=== PATIENT | male | born 1955 | race Caucasian/White ===

== ENCOUNTER 2018-12-26 22:50 | Emergency (ER) | payer OTHER, BC ==
[2018-12-26 23:06] VITALS: BP 167/94; PULSE 74; TEMP 97.5; BMI 34.4
--- NOTE | 2018-12-26 23:25 | PDOC ---
History of Present Illness - General Chief Complaint: Pain, Acute Stated Complaint: WOUND ON LEFT LEG X 6 WEEKS Time Seen by Provider: 12/26/18 22:54 - History of Present Illness Initial Comments: 12/26/18 23:19 63 M with h/o HTN, PVD, presents to ED with LLE wound x 6 weeks. Pt states that he first noticed a small pimple or sore 6 weeks ago that progressively worsened. He went to urgent care and was treated with an antibiotic, which he cannot recall. It helped reduce the redness, but the wound did not heal. Pt states that he went to his PMD, who referred him to a vascular surgeon. The vascular surgeon has been treating the wound with dressings. Pt states that the dressing that he applied 2 days ago began to irritate him today. He reports significant pain to the wound, prompting him to come to the ED. After removing the dressing, pt states the pain has subsided significantly. Pt denies F/C. Denies any purulent drainage or foul smelling drainage from the wound. Past History - Past Medical History Allergies/Adverse Reactions: Allergies Allergy/AdvReac Type Severity Reaction Status Date / Time Isothiazolinones Allergy Verified 12/26/18 22:55 Home Medications: Ambulatory Orders Valsartan/Hydrochlorothiazide [Valsartan-Hctz 160-12.5 mg Tab] 1 each PO DAILY 12/26/18 COPD: No HTN: Yes - Suicide/Smoking/Psychosocial Hx Smoking Status: Yes Smoking History: Former smoker Have you smoked in the past 12 months: No Number of Cigarettes Smoked Daily: 15 Information on smoking cessation initiated: No Hx Alcohol Use: Yes (BEER DAILY) Drug/Substance Use Hx: No Review of Systems - Review of Systems Comments:: 12/26/18 23:23 "GENERAL/CONSTITUTIONAL: No fever or chills. No weakness. HEAD, EYES, EARS, NOSE AND THROAT: No change in vision. No ear pain or discharge. No sore throat. CARDIOVASCULAR: No chest pain, no shortness of breath, no loss of consciousness RESPIRATORY: No cough, wheezing, or hemoptysis. GASTROINTESTINAL: No nausea, vomiting, diarrhea or constipation. GENITOURINARY: No dysuria, frequency, or change in urination. MUSCULOSKELETAL: No joint or muscle swelling or pain. No neck or back pain. SKIN: + LLE wound NEUROLOGIC: No vertigo, no change in strength/sensation. ENDOCRINE: No increased thirst. No abnormal weight change. HEMATOLOGIC/LYMPHATIC: No anemia, easy bleeding, or history of blood clots. ALLERGIC/IMMUNOLOGIC: No hives or skin allergy. *Physical Exam - Vital Signs Last Vital Signs Temp Pulse Resp BP Pulse Ox 97.5 F L 74 16 167/94 95 12/26/18 23:01 12/26/18 23:01 12/26/18 23:01 12/26/18 23:01 12/26/18 23:01 - Physical Exam Comments: 12/26/18 23:23 "GENERAL: Awake, alert, and fully oriented, in no acute distress. HEAD: No signs of trauma EYES: PERRLA, EOMI, sclera anicteric, conjunctiva clear ENT: Auricles normal inspection, hearing grossly normal, nares patent, oropharynx clear without exudates. Moist mucosa NECK: Nontender, no stepoffs, Normal ROM, supple, no lymphadenopathy, JVD, or masses LUNGS: Breath sounds equal, clear to auscultation bilaterally. No wheezes, and no crackles HEART: Regular rate and rhythm, normal S1 and S2, no murmurs, rubs or gallops ABDOMEN: Soft, nontender, normoactive bowel sounds. No guarding, no rebound. No masses EXTREMITIES: Normal range of motion, no edema. No clubbing or cyanosis. No cords, erythema, or tenderness NEUROLOGICAL: Cranial nerves II through XII intact. 5/5 strength and sensation in all extremities, Normal speech, normal gait, normal cerebellar function SKIN: + 4cm ulcer to posterior LLE, no purulent drainage, mild surrounding erythema without induration/fluctuance Medical Decision Making - Medical Decision Making 12/26/18 23:24 63 M with chronic LLE wound, presenting to ED for increased pain to site, now alleviated after removal of wound dressing. Mild erythema around wound but no other signs of infection. - Start bactrim - F/u vascular surgery Pt is well appearing, with normal vitals. Clinically stable for DC at this time. I discussed the physical exam findings, ancillary test results and final diagnoses with the patient. I answered all of the patient's questions. The patient was satisfied with the care received and felt comfortable with the discharge plan and treatment plan. The patient agrees to follow up with the primary care physician within 24-72 hours. *DC/Admit/Observation/Transfer Diagnosis at time of Disposition: Chronic wound of extremity - Discharge Dispostion Disposition: HOME Condition at time of disposition: Stable - Referrals - Patient Instructions Printed Discharge Instructions: Venous Stasis Ulcer Additional Instructions: Take the antibiotics as prescribed. Follow up with your vascular surgeon this as scheduled. If you experience worsening pain, swelling, redness, fevers, or any other concerning symptoms, return to the ER immediately. - Post Discharge Activity - Attestations Physician Attestion: 12/26/18 23:27 I, Dr. Derek Rasmussen MD, attest that this document has been prepared under my direction and personally reviewed by me in its entirety. I further attest, that it accurately reflects all work, treatment, procedures and medical decision -making performed by me.
[2018-12-26] MEDS ORDERED: IBUPROFEN 400 MG TABLET (FP) PO ONE ×2 (23:31→23:32)
--- NOTE | 2018-12-28 10:16 | PDOC ---
Patient Follow-up (Call Back) - Post ED Follow - Up Condition at time of discharge: Stable Disposition at time of original discharge: HOME Reason for Call Back: Complaint/Condition F/U (Pt's called to say the prescription for Bactrim was never sent to the [facility] in [facility]. Upon further investigation, the computer did not convert over the prescription to the pharmacy. I called in the prescription Bactrim for the patient as previously prescribed by Dr. Rasmussen. 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
== END 2018-12-26 23:37 | disposition home or self-care (01) ==
LOC: FER 22:50
DX: Z48.00 Encounter for change or removal of nonsurgical wound dressing (principal); I10 Essential (primary) hypertension; Z87.891 Personal history of nicotine dependence
CPT/HCPCS: 99281-25